=== PATIENT | female | born 1980 | race Caucasian/White ===

== ENCOUNTER 2024-05-03 12:05 | Emergency (ER) | payer OTHER ==
[2024-05-03] MEDS ORDERED: NITROGLYCERIN 0.4 MG/TAB SL ONE (12:25)
--- NOTE | 2024-05-03 12:38 | RAD REPORT ---
Procedure: Chest Single View HISTORY: Chest pain COMPARISON: 2011 FINDINGS: The lungs appear clear of acute infiltrate. No significant pleural effusion noted. The heart is normal size. IMPRESSION: No acute abnormality is displayed.
[2024-05-03 12:52] LABS: Absolute Eosinophils 0.3 K/uL (0-0.5); Absolute Lymphocytes (CBC) 1.2 K/uL (0.7-4.9); Absolute Monocytes 0.4 K/uL (0.1-1.3); Absolute Neutrophil 3.4 K/uL (1.8-8.0); Basophils % 0.7 % (0-1.3); Hematocrit 35.8 % (36.0-45.0); Hemoglobin 11.1 g/dL (12.0-15.0); MCH 19.2 pg (27.0-35.0); MPV 9.3 fL (7.6-11.3); Monocytes % 8.3 % (3.3-12.3); Nucleated Red Blood Cells % 0.1 % (0-0); Platelets 231 thou/uL (152-406); RBC Red Blood Cell Count 5.78 M/uL (3.86-4.86); Red Cell Distribution Width 17.7 % (12.1-15.2)
[2024-05-03 13:01] LABS: ALT/SGPT 78 U/L (13-56); AST/SGOT 102 U/L (15-37); Albumin 3.1 g/dL (3.4-5.0); Albumin/Globulin Ratio 0.6 (1.1-1.8); Alkaline Phosphatase 182 U/L (45-117); Anion Gap 7.7 mEq/L (5.0-15.0); BUN Blood Urea Nitrogen 16 mg/dL (7-18); Bicarbonate 25 mEq/L (21-32); Bilirubin Direct 0.3 mg/dL (0-0.2); Bilirubin Indirect, Calculated 0.2 mg/dL (0.2-0.8); Bilirubin Total 0.5 mg/dL (0.2-1.0); Glomerular Filtration Rate 76 ml/min (=/>90); Glucose Level 350 mg/dL (74-106); NT PRO-BNP 28 pg/mL (<125); Potassium 3.7 mEq/L (3.5-5.1); Protein, Total 8.1 g/dL (6.4-8.2); Sodium Level 133 mEq/L (136-145)
[2024-05-03 13:02] LABS: Troponin High Sensitivity < 3.0 pg/mL (<58.9)
[2024-05-03] MEDS ORDERED: NA CHLORIDE 0.9% 1,000 ML ONE (14:54)
[2024-05-03 15:27] LABS: Anisocytosis 1+; Blood Morphology Comment NOTED (NOT SEEN); Platelet Estimate ADEQ; White Blood Cell Scan OK (OK)
[2024-05-03 15:28] LABS: Hypochromasia 1+; Microcytosis 2+
--- NOTE | 2024-05-03 15:35 | RAD REPORT ---
EXAM: Right upper quadrant ultrasound. CLINICAL HISTORY: Abdominal pain. Elevated liver function tests enzymes COMPARISON: None FINDINGS: Increased hepatic echotexture. 1.1 cm cyst. Hepatopedal flow. A gallstone is not seen. Gallbladder wall not thickened. Biliary tree normal caliber IMPRESSION: Increased hepatic echotexture probably fatty infiltration
--- NOTE | 2024-05-03 15:53 | ER ---
Nurse's Notes [facility] Name: Justyna Anand Age: 43 yrs Sex: Female : 1980 Arrival Date: 05/03/2024 Time: 12:05 Bed 8 Private MD: Diagnosis: Chest pain, unspecified;Nonspecific elevation of levels of transaminase and lactic acid dehydrogenase [LDH];Hyperglycemia, unspecified Presentation: 05/03 12:07 Chief complaint: EMS states: LEFT CP RADIATING TO LEFT SHOULDER. Coronavirus screen: At bp this time, the client does not indicate any symptoms associated with coronavirus-19. Ebola Screen: No symptoms or risks identified at this time. Initial Sepsis Screen: Does the patient meet any 2 criteria? No. Patient's initial sepsis screen is negative. Does the patient have a suspected source of infection? No. Patient's initial sepsis screen is negative. Risk Assessment: Do you want to hurt yourself or someone else? Patient reports no desire to harm self or others. Onset of symptoms is unknown. Care prior to arrival: Medication(s) given: ASA, 81 mg, x 4. 12:07 Method Of Arrival: EMS: [facility] bp 12:07 Acuity: BLADIMIR 3 bp Triage Assessment: 12:09 General: Appears in no apparent distress. Behavior is calm, cooperative, appropriate bp for age. Pain: Complains of pain in chest. EENT: No deficits noted. Neuro: No deficits noted. Cardiovascular: Reports chest pain. Respiratory: No deficits noted. GI: No signs and/or symptoms were reported involving the gastrointestinal system. : No signs and/or symptoms were reported regarding the genitourinary system. Derm: No deficits noted. Musculoskeletal: No deficits noted. Historical: - Allergies: 12:09 PENICILLINS; bp - Home Meds: 12:09 None [Active]; bp - PMHx: 12:09 Anxiety; bp - Immunization history:: Adult Immunizations up to date. - Infectious Disease History:: Denies. - Social history:: Smoking status: unknown. Screenin:10 [facility] ED Fall Risk Assessment (Adult) History of falling in the last 3 months, bp including since admission No falls in past 3 months (0 pts) Confusion or Disorientation No (0 pts) Intoxicated or Sedated No (0 pts) Impaired Gait No (0 pts) Mobility Assist Device Used No (0 pt) Altered Elimination No (0 pt) Score/Fall Risk Level 0 - 2 = Low Risk Oriented to surroundings. Abuse screen: Denies threats or abuse. Denies injuries from another. Nutritional screening: No deficits noted. Tuberculosis screening: No symptoms or risk factors identified. Assessment: 12:10 General: Appears in no apparent distress. Behavior is cooperative, appropriate for age, bp anxious. 13:04 Reassessment: Patient appears in no apparent distress at this time. Patient is alert, bp oriented x 3, equal unlabored respirations, skin warm/dry/pink. 14:55 Reassessment: Patient appears in no apparent distress at this time. Patient is alert, bp oriented x 3, equal unlabored respirations, skin warm/dry/pink. Vital Signs: 12:07 BP 144 / 88; Pulse 83; Resp 16; Temp 98; Pulse Ox 99% ; bp 12:11 BP 153 / 92; Pulse 88; Pulse Ox 100% on R/A; rs6 13:04 BP 134 / 90; Pulse 98; Resp 16; Pulse Ox 100% ; bp 14:54 BP 131 / 73; Pulse 91; Resp 15; Pulse Ox 100% ; bp 16:06 BP 135 / 81; Pulse 91; Resp 16; Pulse Ox 100% ; bp ED Course: 12:07 Patient arrived in ED. bp 12:07 Duglas Larsen MD is Attending Physician. rt 12:08 Triage completed. bp 12:09 Arm band placed on. bp 12:10 Patient has correct armband on for positive identification. Client placed on continuous bp cardiac and pulse oximetry monitoring. NIBP monitoring applied. night monitor on. Pulse ox on. NIBP on. 12:10 Patient maintains SpO2 saturation greater than 95% on room air. bp 12:14 Rik Aponte, OMER is Primary Nurse. bp 12:35 XRAY Chest (1 view) In Process Unspecified. EDMS 12:36 Inserted saline lock: 22 gauge in right antecubital area, using aseptic technique. rs6 Blood collected. Flushed with 10 mL NS. 15:10 US Abdomen Limited In Process Unspecified. EDMS 15:51 Miguel Cochran MD is Referral Physician. rt 16:07 No provider procedures requiring assistance completed. IV discontinued, intact, bp bleeding controlled, No redness/swelling at site. Pressure dressing applied. Administered Medications: 12:30 Drug: Nitroglycerin Sublingual 0.4 mg Sublingual once; every five minute if needed x3 bp Route: Sublingual; 16:08 Follow up: Response: No adverse reaction bp 15:09 Drug: NS 0.9% IV 1000 ml IV at 1 bolus Per protocol; to be given as a bolus over 60 bp minutes Route: IV; Rate: 1 bolus; Site: right antecubital; 16:07 Follow up: IV Status: Completed infusion bp Medication: 12:10 VIS not applicable for this client. bp Outcome: 15:51 Discharge ordered by . rt 16:07 Discharged to home ambulatory, bp 16:07 Condition: stable 16:07 Discharge instructions given to patient, Instructed on discharge instructions, follow up and referral plans. medication usage, Demonstrated understanding of instructions, follow-up care, medications, Prescriptions given X 1, 16:09 Patient left the ED. bp Signatures: Dispatcher [employer] EDRik Pickens RN RN bp Duglas Larsen MD MD rt Duglas Correa rs6
--- NOTE | 2024-05-03 15:53 | EDPHYS ---
Physician Documentation [facility] Name: Justyna Anand Age: 43 yrs Sex: Female : 1980 Arrival Date: 05/03/2024 Time: 12:05 Bed 8 Private MD: ED Physician Duglas Larsen HPI: 05/03 12:20 This 43 yrs old Female presents to ER via EMS with complaints of Chest Pain. rt 12:20 Patient presents to the ED with about 24 hours of a chest pain rating to the right rt shoulder. She states that occasionally rates his left shoulder. Not rating that way currently. Denies waxing or waning of symptoms. This pain occurred at rest. She denies associated symptoms. Symptoms are moderate in severity, no other aggravating or elevating factors.. Historical: - Allergies: 12:09 PENICILLINS; bp - Home Meds: 12:09 None [Active]; bp - PMHx: 12:09 Anxiety; bp - Immunization history:: Adult Immunizations up to date. - Infectious Disease History:: Denies. - Social history:: Smoking status: unknown. ROS: 12:23 Constitutional: Negative for fever, chills, and weight loss, Abdomen/GI: Negative for rt abdominal pain, nausea, vomiting, diarrhea, and constipation, 12:23 MS/Extremity: Negative for injury and deformity, Skin: Negative for injury, rash, and discoloration, Neuro: Negative for headache, weakness, numbness, tingling, and seizure, 12:23 Cardiovascular: Positive for chest pain, Negative for edema, 12:23 Respiratory: Positive for shortness of breath, Negative for cough, 12:23 Respiratory: Negative for shortness of breath, Exam: 12:23 Constitutional: This is a well developed, well nourished patient who is awake, alert, rt and in no acute distress. Head/Face: Normocephalic, atraumatic. Chest/axilla: Normal chest wall appearance and motion. Nontender with no deformity. No lesions are appreciated. Cardiovascular: Regular rate and rhythm with a normal S1 and S2. No gallops, murmurs, or rubs. Normal PMI, no JVD. No pulse deficits. Respiratory: Lungs have equal breath sounds bilaterally, clear to auscultation and percussion. No rales, rhonchi or wheezes noted. No increased work of breathing, no retractions or nasal flaring. Abdomen/GI: Soft, non-tender, with normal bowel sounds. No distension or tympany. No guarding or rebound. No evidence of tenderness throughout. Skin: Warm, dry with normal turgor. Normal color with no rashes, no lesions, and no evidence of cellulitis. MS/ Extremity: Pulses equal, no cyanosis. Neurovascular intact. Full, normal range of motion. Neuro: Awake and alert, GCS 15, oriented to person, place, time, and situation. Cranial nerves II-XII grossly intact. Motor strength 5/5 in all extremities. Sensory grossly intact. Cerebellar exam normal. Normal gait. 12:23 ECG was reviewed by the Attending Physician. Vital Signs: 12:07 BP 144 / 88; Pulse 83; Resp 16; Temp 98; Pulse Ox 99% ; bp 12:11 BP 153 / 92; Pulse 88; Pulse Ox 100% on R/A; rs6 13:04 BP 134 / 90; Pulse 98; Resp 16; Pulse Ox 100% ; bp 14:54 BP 131 / 73; Pulse 91; Resp 15; Pulse Ox 100% ; bp 16:06 BP 135 / 81; Pulse 91; Resp 16; Pulse Ox 100% ; bp MDM: 12:08 Medical Screening Exam initiated rt 17:22 Differential diagnosis: ACS, pneumonia, nonspecific chest pain, elevated LFTs, rt cholecystitis. HEART Score: History: Slightly Suspicious (0), ECG: Normal (0), Age: < or = 45 years (0), Risk Factors: No Risk Factors Known (0), Troponin: < or = 1 x Normal Limit (0), Total Score = 0. Data reviewed: vital signs, nurses notes, lab test result(s), EKG, radiologic studies. Consideration of Admission/Observation Escalation of care including admission/observation considered. Patient with a nonischemic EKG, undetectable troponin, given symptoms lasting greater than 24 hours, believe that this is sufficient to rule out an acute coronary syndrome. Low heart score. Patient with transaminase elevation, slightly higher than what it has been previously. Ultrasound shows fat infiltration of the liver but no ductal dilation, signs of cholecystitis. We this is most likely chronic in nature, patient was informed of this, she is stable for outpatient care.. Independent interpretation of the following test(s) in the Emergency Department X-Ray: My interpretation is No infiltrate seen on my interpretation of x-ray images. Counseling: I had a detailed discussion with the patient and/or guardian regarding the historical points, exam findings, and any diagnostic results supporting the discharge/admit diagnosis, lab results, radiology results, the need for outpatient follow up, to return to the emergency department if symptoms worsen or persist or if there are any questions or concerns that arise at home. Response to treatment: the patient's symptoms have markedly improved after treatment. 05/03 12:14 Order name: Basic Metabolic Panel; Complete Time: 14:22 rt 05/03 12:14 Order name: CBC with Diff; Complete Time: 15:41 rt 05/03 12:14 Order name: LFT's; Complete Time: 14:22 rt 05/03 12:14 Order name: NT PRO-BNP; Complete Time: 14:22 rt 05/03 12:14 Order name: Troponin HS; Complete Time: 14:22 rt 05/03 12:56 Order name: CBC Smear Scan; Complete Time: 15:41 EDMS 05/03 12:14 Order name: XRAY Chest (1 view); Complete Time: 12:38 rt 05/03 14:37 Order name: US Abdomen Limited; Complete Time: 15:41 rt 05/03 12:14 Order name: Cardiac monitoring; Complete Time: 12:51 rt 05/03 12:14 Order name: EKG - Nurse/Tech; Complete Time: 12:51 rt 05/03 12:14 Order name: IV Saline Lock; Complete Time: 12:51 rt 05/03 12:14 Order name: Labs collected and sent; Complete Time: 12:51 rt 05/03 12:14 Order name: O2 Per Protocol; Complete Time: 12:14 rt 05/03 12:14 Order name: O2 Sat Monitoring; Complete Time: 12:14 rt EC:23 Rate is 78 beats/min. Rhythm is regular, Normal Sinus Rhythm with No ectopy. QRS [place] rt is Normal. NV interval is normal. QRS interval is normal. QT interval is normal. No Q waves. T waves are Normal. No ST changes noted. Interpreted by me. Administered Medications: 12:30 Drug: Nitroglycerin Sublingual 0.4 mg Sublingual once; every five minute if needed x3 bp Route: Sublingual; 16:08 Follow up: Response: No adverse reaction bp 15:09 Drug: NS 0.9% IV 1000 ml IV at 1 bolus Per protocol; to be given as a bolus over 60 bp minutes Route: IV; Rate: 1 bolus; Site: right antecubital; 16:07 Follow up: IV Status: Completed infusion bp Disposition Summary: 05/03/24 15:51 Discharge Ordered Notes: Location: Home rt Problem: new rt Symptoms: have improved rt Condition: Stable rt Diagnosis - Chest pain, unspecified rt - Nonspecific elevation of levels of transaminase and lactic acid dehydrogenase [LDH] rt - Hyperglycemia, unspecified rt Followup: rt - With: Private Physician - When: 2 - 3 days - Reason: Followup: rt - With: Miguel Cochran MD - When: 2 - 3 days - Reason: Discharge Instructions: - Discharge Summary Sheet rt - Nonspecific Chest Pain, Adult rt - Hyperglycemia rt - Liver Function Tests rt Forms: - Medication Reconciliation Form rt - Antibiotic Education rt - Prescription Opioid Use rt - Patient Portal Instructions rt - Leadership Thank You Letter rt Prescriptions: - Metformin 500 mg Oral tablet - take 1 tablet ORAL route once daily for 7 days Then take 1 tablet with morning rt meals AND evening meals; 30 tablet; Refills: 0, Product Selection Permitted Signatures: Dispatcher [employer] EDRik Pickens RN RN bp Duglas Larsen MD MD rt Corrections: (The following items were deleted from the chart) 12:14 12:14 BASIC METABOLIC PANEL+C.LAB.BRZ ordered. EDMS EDMS 12:14 12:14 CBC+H.LAB.BRZ ordered. EDMS EDMS 12:14 12:14 HEPATIC FUNCTION+C.LAB.BRZ ordered. EDMS EDMS 12:14 12:14 PROBNP+C.LAB.BRZ ordered. EDMS EDMS 12:14 12:14 Troponin High Sensitivity+C.LAB.BRZ ordered. EDMS EDMS 12:14 12:14 Chest Single View+RAD.RAD.BRZ ordered. EDMS EDMS
[2024-05-03 16:22] VITALS: TEMP 98
[2024-05-03 16:33] VITALS: O2SAT 100
[2024-05-03 16:41] VITALS: BP 135/81
== END 2024-05-03 16:09 | disposition home or self-care (01) ==
LOC: ER 12:05
DX: R07.9 Chest pain, unspecified (principal); R73.9 Hyperglycemia, unspecified; R74.01 Elevation of levels of liver transaminase levels; R74.02 Elevation of levels of lactic acid dehydrogenase [LDH]
CPT/HCPCS: 93005; 85025; 80048; 36415; 80076; 84484; 83880; 71045; 76705; 96360; 99285; J7030

== ENCOUNTER 2024-06-03 19:21 | Emergency (ER) | payer OTHER ==
[2024-06-03] MEDS ORDERED: ONDANSETRON 4 MG/2 ML VIAL ONE (21:40)
[2024-06-03] MEDS ORDERED: NA CHLORIDE 0.9% 1,000 ML ONE ×2 (21:40→23:58)
[2024-06-03 21:43] LABS: Absolute Basophils 0.1 K/uL (0-0.5); Absolute Eosinophils 0.2 K/uL (0-0.5); Absolute Lymphocytes (CBC) 2.1 K/uL (0.7-4.9); Absolute Monocytes 0.9 K/uL (0.1-1.3); Absolute Neutrophil 5.7 K/uL (1.8-8.0); Basophils % 1.3 % (0-1.3); Eosinophils % 2.3 % (0-4.4); Hematocrit 33.3 % (36.0-45.0); Hemoglobin 10.2 g/dL (12.0-15.0); Lymphocytes % 23.2 % (15.3-44.8); MCH 18.7 pg (27.0-35.0); MCHC 30.5 g/dL (32.0-36.0); MCV 61.2 fL (80-100); Monocytes % 9.5 % (3.3-12.3); Neutrophils % 63.7 % (41.7-73.7); Platelets 288 thou/uL (152-406); RBC Red Blood Cell Count 5.44 M/uL (3.86-4.86); Red Cell Distribution Width 17.8 % (12.1-15.2)
[2024-06-03 22:00] LABS: Albumin 3.1 g/dL (3.4-5.0); Albumin/Globulin Ratio 0.6 (1.1-1.8); Anion Gap 9.7 mEq/L (5.0-15.0); BETA HYDROXYBUTYRATE 0.14 mmol/L (0.02-0.27); Bilirubin Total 1.1 mg/dL (0.2-1.0); Globulin 4.9 g/dL (2.3-3.5); Potassium 3.7 mEq/L (3.5-5.1)
[2024-06-03 22:04] LABS: Specific Gravity 1.027 (1.005-1.030); Urine Bacteria <20 /HPF (<20); Urine Bilirubin NEGATIVE (Negative); Urine Blood Negative (Negative); Urine Clarity Extremely Turbid (Clear); Urine Color Yellow (Yellow); Urine Culture Reflex Order REFLEXED; Urine Glucose 4+ (Over) (Negative); Urine Ketones NEGATIVE (Negative); Urine Microscopic Reflex YN ORDER UMIC; Urine Mucus Slight /HPF (None Seen); Urine Nitrite 2+ (Negative); Urine Protein TRACE (Negative); Urine Urobilinogen Normal (Normal); Urine WBC >50 /HPF (<5); Urine WBC Clump Occasional /HPF (None Seen); Urine Yeast (Budding) Trace /HPF (None Seen)
[2024-06-03] MEDS ORDERED: INSULIN REGULAR (HUMAN) 100 UNIT/ML ONE (23:56)
--- NOTE | 2024-06-03 23:56 | RAD REPORT ---
EXAM: US ABDOMEN LIMITED HISTORY: 43-year-old female. elevated LFTs COMPARISON: Limited abdominal sonography report from 05/03/2024, images are currently unavailable. FINDINGS: Grayscale and color-flow imaging was obtained. Partially visualized liver demonstrates heterogeneous diffuse increase in echotexture, without focal lesion. Main portal vein demonstrates hepatopedal flow. No cholelithiasis, or biliary duct dilatation. Negative sonographic Pardo's sign was reported. Gallbladder wall measures 1.1 mm Proximal common bile duct measures 4.4 mm IMPRESSION: 1. No cholelithiasis or biliary duct dilatation. 2. Diffuse hepatic steatosis. Electronically signed by: Narciso Looney MD 06/03/2024 11:53 PM CDT RP Due to temporary technical issues with the PACS/NumberFouribe reporting system, reports are being signed by the in-house radiologist without review as a courtesy to ensure prompt reporting the interpreting radiologist is fully responsible for the content of the report. Transcribed Date/Time: 06/03/2024 11:56 PM
[2024-06-03] MEDS ORDERED: CEFTRIAXONE 1000 MG/VIAL ONE (23:57)
[2024-06-03] MEDS ORDERED: NA CHLORIDE 0.9% 50 ML ONE (23:57)
--- NOTE | 2024-06-04 00:14 | EDPHYS ---
Physician Documentation [facility] Name: Justyna Anand Age: 43 yrs Sex: Female : 1980 Arrival Date: 06/03/2024 Time: 19:21 Bed 15 Private MD: ED Physician Zackary Troncoso HPI: 06/03 19:50 This 43 yrs old Female presents to ER via EMS with complaints of High Blood Sugar. cp 19:50 The patient or guardian reports hyperglycemia, that was potentially precipitated by not cp reducing dose of prescribed Metformin. 19:50 Associated signs and symptoms: Pertinent negatives: diarrhea, vomiting, fever, chest cp pain, abdominal pain. 19:50 Patient reports she is prescribed Metformin and due to almost running out of cp medication, has been taking less than she is prescribed. unable to f/u with pcp. 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 ROS: 19:55 Constitutional: Negative for body aches, chills, fever, poor PO intake, cp 19:55 Eyes: Negative for injury, pain, redness, and discharge, cp 19:55 ENT: Negative for drainage from ear(s), ear pain, sore throat, difficulty swallowing, difficulty handling secretions, 19:55 Cardiovascular: Negative for chest pain, palpitations, 19:55 Respiratory: Negative for cough, shortness of breath, wheezing, 19:55 Abdomen/GI: Negative for vomiting, diarrhea, constipation, 19:55 Neuro: Negative for altered mental status, 19:55 All other systems are negative, Exam: 20:00 Constitutional: The patient appears in no acute distress, alert, awake, cp non-diaphoretic, non-toxic, well developed, well nourished, 20:00 Head/Face: Normocephalic, atraumatic. cp 20:00 Eyes: Periorbital structures: appear normal, Conjunctiva: normal, no exudate, no injection, Sclera: no appreciated abnormality, Lids and lashes: appear normal, bilaterally, 20:00 ENT: External ear(s): are unremarkable, Nose: is normal, Mouth: Lips: moist, Oral mucosa: moist, Posterior pharynx: Airway: no evidence of obstruction, patent, erythema, is not appreciated, exudate, is not appreciated, 20:00 Neck: ROM/movement: is normal, is supple, without pain, no range of motions limitations, 20:00 Chest/axilla: Inspection: normal, 20:00 Cardiovascular: Rate: tachycardic, Rhythm: regular, Edema: is not appreciated, JVD: is not appreciated, 20:00 Respiratory: the patient does not display signs of respiratory distress, Respirations: normal, no use of accessory muscles, no retractions, labored breathing, is not present, Breath sounds: are clear throughout, no decreased breath sounds, no stridor, no wheezing, 20:00 Abdomen/GI: Inspection: obese Bowel sounds: active, all quadrants, Palpation: soft, in all quadrants, mild abdominal tenderness, in all quadrants, 20:00 Back: CVA tenderness, is absent, 20:00 Neuro: Orientation: to person, place \T\ time. Mentation: is normal, Cerebellar function: is grossly normal, Motor: moves all fours, strength is normal, Sensation: no obvious gross deficits, Vital Signs: 19:45 BP 142 / 96; Pulse 111; Resp 18; Temp 97.9; Pulse Ox 100% ; Weight 63.5 kg; Height 4 br2 ft. 11 in. ; Pain 0/10; 06/04 00:10 BP 128 / 64; Pulse 94; Resp 17; Temp 98.1; Pulse Ox 100% ; Pain 0/10; jj7 06/03 19:45 Body Mass Index 28.28 (63.50 kg, 149.86 cm) br2 06/03 19:45 Pain Scale: Adult br2 06/04 00:10 Pain Scale: Adult jj7 MDM: 06/03 20:23 Medical Screening Exam initiated cp 06/04 00:12 Data reviewed: vital signs, nurses notes, lab test result(s), radiologic studies, cp ultrasound, and as a result, I will discharge patient. 00:12 Differential diagnosis: diabetes insipidus, DKA, hyperglycemia, hyperthyroidism, cp hypothyroidism, sepsis, liver disease, pancreatitis, cholecystitis. I considered the following discharge prescriptions or medication management in the emergency department Medications were administered in the Emergency Department. See MAR. Care significantly affected by the following chronic conditions: Diabetes. Counseling: I had a detailed discussion with the patient and/or guardian regarding the historical points, exam findings, and any diagnostic results supporting the discharge/admit diagnosis, lab results, radiology results, the need for outpatient follow up, for definitive care, a family practitioner, to return to the emergency department if symptoms worsen or persist or if there are any questions or concerns that arise at home. Response to treatment: the patient's symptoms have mildly improved after treatment, and as a result, I will discharge patient. 06/03 19:48 Order name: CBC with Diff; Complete Time: 22:21 06/03 22:21 Interpretation: Normal except: RBC 5.44; HGB 10.2; HCT 33.3; MCV 61.2; MCH 18.7; MCHC cp 30.5; RDW 17.8. 06/03 19:48 Order name: CMP; Complete Time: 22:21 06/03 22:22 Interpretation: Normal except: NA 131; GLUC 378; BUN 27; CRE 1.21; GFR 56; AST 115; ALT cp 119; ALK 157; BILIT 1.1; ALB 3.1; GLOB 4.9; A/G 0.6. 06/03 19:48 Order name: Lipase; Complete Time: 22:21 06/03 19:48 Order name: Test, Urine; Complete Time: 22:21 06/03 19:48 Order name: Urinalysis w/ reflexes; Complete Time: 22:21 06/03 23:41 Interpretation: Normal except: [facility] Extremely Turbid; UGLUC 4+ (Over); UPROT TRACE; cp UNIT 2+; UESTR 250; UWBC >50; URBC 5-10; UWBC Clump Occasional; BYST Trace. 06/03 19:48 Order name: BETA HYDROXYBUTYRATE; Complete Time: 22:21 06/03 22:09 Order name: Urine Culture EDIL 06/04 00:04 Order name: Glucose, Ancillary Testing; Complete Time: 00:09 EDIL 06/04 00:09 Interpretation: Reviewed. 06/04 00:07 Order name: Glucose, Ancillary Testing EDIL 06/03 22:26 Order name: US Abdomen Limited 06/04 00:01 Interpretation: Report reviewed. 06/03 19:48 Order name: IV Saline Lock; Complete Time: 21:37 06/03 19:48 Order name: Labs collected and sent; Complete Time: 21:37 cp 06/03 23:43 Order name: Accucheck Blood Glucose; Complete Time: 00:03 cp Administered Medications: 00:12 Discontinued: ns 0.9% 1000 ml IV at 1000 ml once; to be given as a bolus over 60 minutescp 06/03 21:50 Drug: NS 0.9% IV 1000 ml IV at 1 bolus Per protocol; to be given as a bolus over 60 rg5 minutes Route: IV; Rate: 1 bolus; Site: left forearm; 06/04 00:39 Follow up: IV Status: Completed infusion jj7 06/03 21:51 Drug: Ondansetron IVP 4 mg IVP once; over 2 minutes Route: IVP; Site: left forearm; rg5 23:47 Follow up: Response: No adverse reaction rg5 23:43 CANCELLED (Physician Discretion): insulin regular human10 units Sub-Q once cp 06/04 00:02 Drug: Insulin Regular Human Sub-Q 10 units Sub-Q once; give if blood glucose above 300 rg5 {Co-Signature: [email or web address] (Raghavendra Cazares RN).} Route: Sub-Q; Site: left lower abdomen; 00:50 Follow up: Response: Blood sugar is lowered jj7 00:03 Drug: Rocephin IV 1 grams IV at calculated rate once; Given slow IV push per pharmacy rg5 instructions Route: IV; Rate: calculated rate; Site: right forearm; 00:39 Follow up: IV Status: Completed infusion jj7 00:03 Drug: NS 0.9% IV 1000 ml IV at 1000 ml once; to be given as a bolus over 60 minutes rg5 Route: IV; Rate: 1000 ml; Site: right forearm; 00:39 Follow up: IV Status: Completed infusion jj7 Point of Care Testing: Blood Glucose: 06/03 19:45 Blood Glucose: 436 mg/dL; br2 Ranges: Critical Glucose Levels:Adult <50 mg/dl or >400 mg/dl <40 mg/dl or >180 mg/dl Disposition Summary: 06/04/24 00:13 Discharge Ordered Notes: Location: Home cp Problem: an acute exacerbation cp Symptoms: have improved cp Condition: Stable cp Diagnosis - Diabetes mellitus due to underlying condition with hyperglycemia cp - UTI/ Urinary tract infection, site not specified cp - Abnormal results of liver function studies cp - Abnormal findings on diagnostic imaging of liver and biliary tract cp Followup: cp - With: Private Physician - When: 5 - 6 days - Reason: Recheck today's complaints Discharge Instructions: - Discharge Summary Sheet cp - Hyperglycemia cp - Urinary Tract Infection, Adult cp - Daily Diabetes Mellitus Record cp - Blood Glucose Monitoring, Adult cp - Diabetes Mellitus and Nutrition, Adult cp Forms: - Medication Reconciliation Form cp - Antibiotic Education cp - Prescription Opioid Use cp - Patient Portal Instructions cp - Leadership Thank You Letter cp Prescriptions: - Metformin 1,000 mg Oral tablet - take 1 tablet ORAL route every 12 hours with morning and evening meals; 60 cp tablet; Refills: 0, Product Selection Permitted - Macrobid 100 mg Oral Capsule - take 1 capsule ORAL route every 12 hours for 7 days; 14 capsule; Refills: 0, cp Product Selection Permitted Signatures: Dispatcher [employer] EDTonia Carter RN RN iw Kale Rocha PA PA cp Raghavendra Cazares RN RN jj7 Carlos Gruber RN RN rg5 Raghavendra Cazares RN jj7 Corrections: (The following items were deleted from the chart) 19:48 19:48 CBC+H.LAB.BRZ ordered. EDMS EDMS 19:48 19:48 COMPREHENSIVE METABOLIC PANEL+C.LAB.BRZ ordered. EDMS EDMS 19:48 19:48 LIPASE+C.LAB.BRZ ordered. EDMS EDMS 19:48 19:48 Test, Urine+UC.LAB.BRZ ordered. EDMS EDMS 19:48 19:48 Urinalysis+U.LAB.BRZ ordered. EDMS EDMS 19:48 19:48 BETA HYDROXYBUTYRATE+C.LAB.BRZ ordered. EDMS EDMS 23:43 23:42 Insulin Regular Human Sub-Q 10 units Sub-Q once ordered. cp cp
--- NOTE | 2024-06-04 00:14 | ER ---
Nurse's Notes [facility] Name: Justyna Anand Age: 43 yrs Sex: Female : 1980 Arrival Date: 06/03/2024 Time: 19:21 Bed 15 Private MD: Diagnosis: Diabetes mellitus due to underlying condition with hyperglycemia;UTI/ Urinary tract infection, site not specified;Abnormal results of liver function studies;Abnormal findings on diagnostic imaging of liver and biliary tract Presentation: 06/03 19:24 Chief complaint: EMS states: toned out for not feeling well due to high BS ,pt is newly iw diagnosed diabetic X 1 month ,she has been on compliant with her meds. Coronavirus screen: At this time, the client does not indicate any symptoms associated with coronavirus-19. Ebola Screen: No symptoms or risks identified at this time. Initial Sepsis Screen: Does the patient meet any 2 criteria? No. Patient's initial sepsis screen is negative. Does the patient have a suspected source of infection? No. Patient's initial sepsis screen is negative. Risk Assessment: Do you want to hurt yourself or someone else? Patient reports no desire to harm self or others. Care prior to arrival: Glucose check: 436. 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 Screenin/21 00:10 [facility] ED Fall Risk Assessment (Adult) History of falling in the last 3 months, jj7 including since admission No falls in past 3 months (0 pts) Confusion or Disorientation No (0 pts) Intoxicated or Sedated No (0 pts) Impaired Gait No (0 pts) Mobility Assist Device Used No (0 pt) Altered Elimination No (0 pt) Score/Fall Risk Level 0 - 2 = Low Risk Oriented to surroundings, Maintained a safe environment, Educated pt \T\ family on fall prevention, incl call for assistance when getting out of bed, Assessed \T\ reinforced patient's understanding of fall precautions. Abuse screen: Denies threats or abuse. Nutritional screening: No deficits noted. Tuberculosis screening: No symptoms or risk factors identified. Assessment: 00:10 Reassessment: ASSUMED CARE OF PT. PT LYING IN BED. NO PAIN OR DISTRESS. PT IS jj7 DISCHARGED. BLOOD GLUCOSE CHECK 250. VS STABLE. Reassessment: Patient states feeling better. Patient states symptoms have improved. General: Appears in no apparent distress. comfortable, Behavior is calm, cooperative, appropriate for age. Pain: Denies pain. Neuro: No deficits noted. Cardiovascular: No deficits noted. Respiratory: No deficits noted. EENT: No deficits noted. Derm: No deficits noted. Musculoskeletal: No deficits noted. Vital Signs: 06/03 19:45 BP 142 / 96; Pulse 111; Resp 18; Temp 97.9; Pulse Ox 100% ; Weight 63.5 kg; Height 4 br2 ft. 11 in. ; Pain 0/10; 06/04 00:10 BP 128 / 64; Pulse 94; Resp 17; Temp 98.1; Pulse Ox 100% ; Pain 0/10; jj7 06/03 19:45 Body Mass Index 28.28 (63.50 kg, 149.86 cm) br2 06/03 19:45 Pain Scale: Adult br2 06/04 00:10 Pain Scale: Adult jj7 ED Course: 06/03 19:23 Patient arrived in ED. iw 19:25 Triage completed. iw 19:45 Arm band placed on right wrist. br2 19:47 Kale Rocha PA is PHCP. cp 19:47 Zackary Troncoso MD is Attending Physician. cp 21:19 Carlos Gruber, OMER is Primary Nurse. rg5 22:56 US Abdomen Limited In Process Unspecified. EDMS 06/04 00:10 Patient has correct armband on for positive identification. Placed in gown. Bed in low jj7 position. Call light in reach. Side rails up X 1. Provided Education on: MEDICATIONS. 00:10 No provider procedures requiring assistance completed. jj7 00:39 IV discontinued, intact, bleeding controlled, No redness/swelling at site. Pressure jj7 dressing applied. 00:50 Glucose, Ancillary Testing Sent. jj7 Administered Medications: 00:12 Discontinued: ns 0.9% 1000 ml IV at 1000 ml once; to be given as a bolus over 60 minutescp 06/03 21:50 Drug: NS 0.9% IV 1000 ml IV at 1 bolus Per protocol; to be given as a bolus over 60 rg5 minutes Route: IV; Rate: 1 bolus; Site: left forearm; 06/04 00:39 Follow up: IV Status: Completed infusion jj7 06/03 21:51 Drug: Ondansetron IVP 4 mg IVP once; over 2 minutes Route: IVP; Site: left forearm; rg5 23:47 Follow up: Response: No adverse reaction rg5 23:43 CANCELLED (Physician Discretion): insulin regular human10 units Sub-Q once 06/04 00:02 Drug: Insulin Regular Human Sub-Q 10 units Sub-Q once; give if blood glucose above 300 rg5 {Co-Signature: jj7 (Raghavendra Cazares RN).} Route: Sub-Q; Site: left lower abdomen; 00:50 Follow up: Response: Blood sugar is lowered 7 00:03 Drug: Rocephin IV 1 grams IV at calculated rate once; Given slow IV push per pharmacy rg5 instructions Route: IV; Rate: calculated rate; Site: right forearm; 00:39 Follow up: IV Status: Completed infusion jj7 00:03 Drug: NS 0.9% IV 1000 ml IV at 1000 ml once; to be given as a bolus over 60 minutes rg5 Route: IV; Rate: 1000 ml; Site: right forearm; 00:39 Follow up: IV Status: Completed infusion jj7 Medication: 00:10 VIS not applicable for this client. jj7 Point of Care Testing: Blood Glucose: 06/03 19:45 Blood Glucose: 436 mg/dL; br2 Ranges: Outcome: 06/04 00:13 Discharge ordered by . dorothea 00:39 Discharged to home ambulatory, j7 00:39 Condition: improved 00:39 Discharge instructions given to patient, Instructed on discharge instructions, follow up and referral plans. medication usage, Demonstrated understanding of instructions, follow-up care, medications, Prescriptions given X 2, 00:45 Patient left the ED. jj7 Addendum: 06/06/2024 07:10 Addendum: Culture Results: Positive urine culture. No further action required. Bacteria s s sensitive to prescribed antibiotic. Signatures: [facility] RN RN iw Blanchard, Shelby, RN RN ss Kale Rocha PA PA cp Johnson, Juwairiyah, RN RN jj7 Carlos Gruber RN RN rg5 Lisa Rangel RN RN br2 Raghavendra Cazares RN jj7 Corrections: (The following items were deleted from the chart) 06/04 00:53 00:52 Patient left the ED. edgardo jj7
[2024-06-04 00:57] VITALS: O2SAT 100
[2024-06-04 00:58] VITALS: BP 128/64; TEMP 98.1
== END 2024-06-04 00:52 | disposition home or self-care (01) ==
LOC: ER 19:21
DX: E11.65 Type 2 diabetes mellitus with hyperglycemia (principal); N39.0 Urinary tract infection, site not specified; R94.5 Abnormal results of liver function studies; R93.2 Abnormal findings on diagnostic imaging of liver and biliary tract
CPT/HCPCS: 96365; 96361; 87088; 85025; 81001; 87086; 36415; 81025; 82947 ×2; 87077 ×2; 87186 ×2; 83690; 80053; 82010; 76705; 96375; 96372; 99284; J2405; J1815; J7030 ×2; J0696